=== PATIENT | male | born 1945 | race Caucasian/White ===

== ENCOUNTER 2017-03-27 08:49 | Day surgery (SDC) | payer MEDICARE ==
[2017-03-27] VITALS (10 sets, daily range): BP systolic 106–149; BP diastolic 57–83; PULSE 57–65; RESP 14–25; O2SAT 93–95
[~2017-03-27] VITALS: Ht 185.4 cm; Wt 115.2 kg
[~2017-03-27 08:49] MED LIST: CARB1CAP3 PO; CIPR-231 PO; LOSA50TA37 PO; NITR100C PO; ROPI0.252 PO; TAMS0.4C98 PO
[2017-03-27] MEDS ORDERED: Furosemide 10 mg/mL 4 mL Inj ONE (08:50)
[2017-03-27] MEDS ORDERED: Dexamethasone 4 mg/mL Inj ONE (08:50)
[2017-03-27] MEDS ORDERED: Ondansetron 2 mg/mL 2 mL Inj ONE (08:50)
[2017-03-27] MEDS ORDERED: Propofol 10,000 mCg/mL 20 mL Inj ONE (08:50)
[2017-03-27] MEDS ORDERED: Lactated Ringer's 1,000 ML IV ONE (09:19)
[2017-03-27] MEDS ORDERED: levoFLOXacin 500 mg/100 mL D5W Premix IV ONE (09:19)
[2017-03-27] MEDS ORDERED: Vancomycin 1,000mg/200 mL NS IV ONE (09:19)
[2017-03-27 09:51] LABS: APPEARANCE,URINE HAZY (CLEAR,HAZY); COLOR,URINE YELLOW (YELLOW); OCCULT BLOOD,URINE LARGE (NEGATIVE); UROBILINOGEN,URINE NORMAL (NORMAL)
[2017-03-27 09:55] LABS: BASOPHILS % (AUTO) 0.2 % (0-3); EOSINOPHILS % (AUTO) 3.8 % (0-5); MONOCYTES % (AUTO) 8.5 % (4-12); Mean Corpuscular Hemoglobin 29.8 pg (27.0-35.0); Mean Corpuscular Volume 88.7 fL (81-100); NEUTROPHILS % (AUTO) 67.2 % (40-74); Platelet Count 258 bil/L (150-400)
--- NOTE | 2017-03-27 10:27 | DRSVH ---
PROCEDURE: X-RAY CHEST ONE VIEW, PORTABLE ([id number]) INDICATIONS: PREOP TECHNIQUE: One view of the chest was acquired. COMPARISON: [facility], CR, XR CHEST 2VW, 11/29/2015, 16:18. [facility], CR , XR CHEST 2VW, 12/08/2015, 13:29. FINDINGS: Surgical changes and devices: None. Lungs and pleura: Mild diffuse interstitial prominence. No pleural effusions or pneumothorax. Lungs are clear. Mediastinum: Mediastinal contours appear normal. Heart size is normal. Bones and chest wall: No suspicious bony lesions. Overlying soft tissues appear unremarkable. IMPRESSION: Mild increase in interstitial prominence. No acute cardiopulmonary disease. Dictated by: Laury Romo M.D. on 03/27/2017 at 10:24 Approved by: Laury Romo M.D. on 03/27/2017 at 10:25
[2017-03-27] MEDS ORDERED: Phenylephrine 10,000 mCg/mL Inj IVPUSH PRN (11:05)
[2017-03-27] MEDS ORDERED: Lactated Ringer's 500 ML IV PRN (11:05)
[2017-03-27] MEDS ORDERED: MetoCLOpramide 5 mg/mL 2 mL Inj IVPUSH PRN (11:05)
[2017-03-27] MEDS ORDERED: HYDROmorphone 1 mg/mL Inj IVPUSH PRN (11:05)
[2017-03-27] MEDS ORDERED: EPHEDrine Sulfate 50 mg/mL Inj IVPUSH PRN (11:05)
[2017-03-27] MEDS ORDERED: Dexamethasone 4 mg/mL Inj IVPUSH PRN (11:05)
[2017-03-27] MEDS ORDERED: Ondansetron 2 mg/mL 2 mL Inj IVPUSH PRN (11:05)
[2017-03-27] MEDS ORDERED: fentaNYL-PF 50 mCg/mL 2 mL Inj IVPUSH PRN (11:05)
--- NOTE | 2017-03-27 11:05 | PCM.HPANE ---
Patient Data Surgeon Admitting Provider: Attending Provider:Betito Arce MD Primary Care Physician:Marco Pascal MD Other Provider:Sasha Moyaingham Anesthesia Reason for Visit Bladder Stone Ht/WT & BMI Height (Feet): 6 Height (Inches): 1 Weight (Kilograms): 115.2 Body Mass Index 33.00 Allergies Coded Allergies: No Known Allergies (Verified , 03/26/17) Past Anesthesia History Anesthesia History: Denies:: Abnormal Airway, Anesthesia Reactions, Difficult Intubation, Fam Anesthesia Reaction, Fam Malignant Hypertherm, Malignant Hyperthermia Diabetes History Hx Diabetes?: No MRSA MRSA: No Medications Hypertension Medication: Yes (LOSARTAN) Home Meds Incl Beta Jennifer: No Reported Medications Carbidopa/Levodopa (Rytary ER 36.25 mg-145 mg Cap)36.25 Mg-145 Mg Capsule.er3 Each PO TID 03/26/17 Ciprofloxacin (Cipro)500 Mg [id number] Mg PO BID Ref 0 X 7 DAYS 03/26/17 Losartan Potassium 50 Mg [id number] Mg PO HS 12/04/15 Tamsulosin (Flomax)0.4 Mg Capsule0.4 Mg PO DAILY Ref 0 12/04/15 Discontinued Reported Medications Ropinirole 0.25 Mg Tablet0.25 Mg PO HS Ref 0 03/26/17 Nitrofurantoin Macrocrystal 100 Mg [id number] Mg PO HS Ref 0 03/26/17 Carbidopa/Levodopa 25-100 mg 1 Each Tablet2 Tablet PO QID 12/04/15 History History of ENT Problems?: No HEENT History: Denies:: Abnormal Airway Cataracts Difficult Intubation Dysphagia Glaucoma Hearing Problem Sinus Problem TMJ Denture Type: None Teeth Condition: Within Normal Limits Hx of Heart Problems?: Yes Cardiovascular History: Positive for:: Hypertension Denies:: AICD Atrial Fibrillation Chest Pain Heart Murmur Pacemaker Valvular Heart Disease Hx of Respiratory Problem?: Yes Respiratory History: Positive for:: Use of C-PAP Machine (SRINIVASA+ W/ ??CPAP SLEEP STUDY 11/2016) Denies:: Asthma COPD Chest Surgery (HX OF PULMONARY NODULE) Cough Hemoptysis Pneumonia Tuberculosis Hx Neurologic Problems?: Yes Neurological History: Positive for:: Parkinson's Disease Denies:: CVA Dementia Hx of GI Problems?: Yes Other GI Pertinent History: S/P UMBILICAL HERNIA RPR Hx of Problems?: Yes Genitourinary History: Positive for:: Urinary Tract Infection Other Pertinent History: BLADDER STONE=CURRENT PROBLEM HX PRIOR STONES IN BLADDER,LIPOMA PELVIC FLOOR S/P LITHOLAPAXY X2 Male Hx: Positive for:: Prostate Problems (BPH S/P MULT PROSTATE BX'S,TURP ) Denies:: Scrotal Mass Testicular Surgery Skin History: Denies:: History Skin Disorders? Pressure Ulcers Hx Musculoskeletal Problems?: Yes Musculoskeletal History: Positive for:: Musculoskeletal Trauma (S/P RT KNEE MENISECTOMY) Denies:: Joint Replacement Hx of Psycho/Social Problems?: No Psycho Social History: Denies:: Anxiety Hx Depression Hx Surgeries?: Yes (RT KNEE MENISECTOMY,TURP,UMBILICAL HERNIA RPR,MULT PROSTATE BX'S,LITHOLAPAX) Hx Any Other Health Problems?: Yes Other History: Positive for:: Hospitalization (BPH, ENDOSCOPY) Denies:: Cancer Endocrine Disease Thyroid Disease History Blood Transfusions: Denies:: Blood Transfusions Hx Diabetes: No Hx Alcohol Use: YesAlcoholic Drinks Per Day: 1/DAYHx Substance Use: No Smoking Status: Never Smoker Have You Smoked inLast 12 mo: No Stop/Bang Treated for Sleep Apnea?: Yes Do You Have a CPAP Machine?: Yes S-Snoring: Do You Snore Loudly: Yes T-Tired: feel tired, fatigued: Yes O-Obsered: Observed not breath: No P-Blood Pressure: treated: Yes B- Body Mass Index > 35 kg/m2: No A- Age over 50: Yes N- Neck Large Circumference: Yes G- Gender Male: Yes SRINIVASA Total Score: 6 SRINIVASA Risk Assessment: High Risk, =/>3 Yes Risk Assessment Category Category 1A: Patient has history of documented sleep apnea, and HAS NOT received any narcotic, sedative or anesthesia administration during this stay. Category 1B: Patient has history of documented sleep apnea, and HAS received any narcotic , sedative or anesthesia administration during this stay Category 2: Patient has SUSPECTED Obstructive Sleep Apnea, and HAS received any narcotic , sedative or anesthesia administration during this stay. Category 3: Patient has SUSPECTED Obstructive Sleep Apnea and HAS NOT received narcotic, sedative or anesthesia administration during this stay. Category 4: Outpatient in Procedural Areas with known sleep apnea or who screen positive for High Risk via the STOP/BANG questionnaire. Exam Exam Vital Signs Vital Signs Date Time Temp Pulse Resp B/P Pulse Ox O2 Delivery O2 Flow Rate FiO2 03/27/17 09:51 36.1 58 18 129/78 95 Room Air General Appearance: Oriented X3 HEENT/AIRWAY: MP 2 Lungs: Normal Air Movement Heart: Regular Rate/Rhythm Meds/Labs/Diagnostics Admission Meds Current Medications Lactated Ringer's (Lr) 1,000 ml @ ud STK-MED ONCE IV Last administered on t 09:19; Start 03/27/17 at 09:19; Stop 03/27/17 at 09:20; Status DC Labs Test 03/27/17 09:28 03/27/17 09:45 Urine Color Yellow (YELLOW) Urine Appearance Hazy (CLEAR,HAZY) Urine pH 6.0 (5.0-8.0) Urine Specific [place] 1.020 (1.003-1.035) Urine Protein 30mg/dL (NEG,TRACE) Urine Glucose (UA) Negativemg/dL (NEGATIVE) Urine Ketones Negativemg/dL (NEGATIVE) Urine Occult Blood Large (NEGATIVE) Urine Nitrite Positive (NEGATIVE) Urine Bilirubin Negative (NEGATIVE) Urine Urobilinogen Normalmg/dL (NORMAL) Urine Leukocyte Esterase Moderate (NEGATIVE) Urine RBC 11-50/hpf (0-2) Urine WBC 11-50/hpf (0-5) Urine Epithelial Cells Occasional/hpf (NONE-MOD) Urine Crystals None seen (NONE SEEN) Urine Bacteria Few/hpf (NONE-FEW) Urine Hyaline Casts None/lpf (NONE) Urine Granular Casts None seen (NONE SEEN) Urine Waxy Casts None seen (NONE SEEN) Urine Red Blood Cell Casts None seen (NONE SEEN) Urine White Blood Cell Casts None seen (NONE SEEN) Urine Mucus None seen (None Seen) Urine Trichomonas None seen (NONE SEEN) Urine Yeast None (NONE SEEN) Urinalysis Comment None Urine Culture Reflexed Indicated White Blood Count 8.4th/mm3 (3.8-10.1) Red Blood Count 4.96mil/mm3 (4.40-5.80) Hemoglobin 14.8g/dL (13.8-17.2) Hematocrit 44.0% (41.0-50.0) Mean Corpuscular Volume 88.7fL (81-100) Mean Corpuscular Hemoglobin 29.8pg (27.0-35.0) Mean Corpuscular Hemoglobin Concent 33.6% (32.0-37.0) Red Cell Distribution Width 12.9% (12.3-15.4) Platelet Count 258bil/L (150-400) Neutrophils (%) (Auto) 67.2% (40-74) Lymphocytes (%) (Auto) 20.2% (14-46) Monocytes (%) (Auto) 8.5% (4-12) Eosinophils (%) (Auto) 3.8% (0-5) Basophils (%) (Auto) 0.2% (0-3) Sodium Level 136mEq/L (134-144) Potassium Level 4.2mEq/L (3.5-5.2) Chloride Level 102mEq/L (97-108) Carbon Dioxide Level 20mmol/L (18-29) Blood Urea Nitrogen 17mg/dL (8-27) Creatinine 0.67mg/dL (0.76-1.27) Estimat Glomerular Filtration Rate 124mL/min (>59) Glucose Level 113mg/dL (60-99) Calcium Level 9.2mg/dL (8.5-10.1) Plan Impression Patient chart reviewed, patient interviewed and anesthestic plan with risks, benefits, and alternatives discussed, and informed consent obtained. ASA Physical Status: ASA2 Mod Systemic Disease Anesthetic Plan: GA Bene/Risks/Altern/Consents: Yes HP Complete Prior to Induction: Yes Leo Hancock MD Mar 27, 2017 11:05
[2017-03-27] MEDS ORDERED: Belladonna Alk-Opium 60 mg Rectal Suppository RECTAL ONE (11:51)
--- NOTE | 2017-03-27 14:07 | PCM.SURGPO ---
Immediate Operative Note Date of Surgery: Mar 27, 2017 Pre Operative Diagnosis Bladder calculi Post Operative Diagnosis Bladder calculi Procedure Cystoscopy, cystolitholapaxy with Holmium laser Surgeon and Vice President Of Finance Surgeon: Betito Arce MD Assistants: None Findings Cystoscopy revealed s/p TURP defect with moderate regrowth of prostatic tissue in prostatic fossa, mild-moderately enlarged intravesical median prostatic lobe , prostatic varices (with bleeding seen after passage of cystoscope into bladder ), 10-15 bladder calculi (largest calculus approx. 2.5-3cm, 2nd and 3rd largest calculi approx. 1-1.5cm, other calculi <1cm), moderately trabeculated bladder, no bladder tumors or lesions, and B/L ureteral orifices in normal position. Cystolitholapaxy with Holmium laser performed. Fulguration of bleeding at bladder neck and in prostatic urethra performed using bipolar loop electrocautery. Of note, extra-long continuous flow resectoscope used during case. Complications There were no periprocedural complications identified. Surgical Specimen Removed: Yes Specimen sent to Pathology: No Surgical Specimen description: Bladder calculi fragments sent to lab for stone analysis Anesthetic Administered: GA Grafts, Implants: Other (22F Coude Moeller catheter to straight drainage) Output, Estimated Blood Loss: 20 Blood Admin during surgery: No Additional information Patient to be discharged home with Moeller and to return in 5-6 days for post-op visit and trial of void (early-mid AM appt.). Betito Arce MD Mar 27, 2017 14:07
--- NOTE | 2017-03-27 14:13 | PCM.DISURG ---
Surgical Discharge Instruction Date of Service Mar 27, 2017 Dates of Hospitalization Date of Hospital Admission Mar 27, 2017 Providers Admitting Physician: Betito Arce MD Primary Care Physician: Marco Pascal MD Attending Physician: Betito Arce MD Discharge Diagnosis Discharge Diagnosis Bladder calculi Post Operative diagnosis Bladder calculi Diet Discharge Diet: No restrictions, Other (Drink at least 10-12 8oz. glasses (3 liters) of fluids per day as long as there is blood in the urine) Activity Discharge Activity-General: No driving while taking narcotic, Other (No strenuous exercise/activity, moderate or heavy lifting (> 10 lbs.), or straining (including for bowel movements) for 2 weeks) Dressing and Incisional Care Hygiene: May shower Follow Up Plan Follow-up Provider (F9): Betito Arce MD Follow-up appointment: Days (5-6 days for post-op visit and trial of void ( early-mid AM appt.)) Call your provider for: Fever, Chills, Vomiting, Other (Non-draining Moeller catheter, pain uncontrolled by pain medications) Betito Arce MD Mar 27, 2017 14:13
[2017-03-27] MEDS: Lactated Ringer's 1,000 ML IV SCH ×2 (14:15→14:38)
[2017-03-27] MEDS ORDERED: HYDROcodone-APAP 5-325 mg Tablet PO PRN (14:20)
--- NOTE | 2017-03-27 14:59 | PCM.ANEP1 ---
Post Anesthesia PACU Phase 1 Assessment Vital Signs Vital Signs Date Time Temp Pulse Resp B/P Pulse Ox O2 Delivery O2 Flow Rate FiO2 03/27/17 14:40 36.2 65 16 135/76 93 Room Air 03/27/17 14:35 64 19 140/83 95 Room Air 03/27/17 14:30 65 14 127/76 93 Room Air 03/27/17 14:15 58 18 124/64 94 Simple Mask 7 03/27/17 14:10 36.1 57 19 113/63 94 Simple Mask 7 03/27/17 14:05 57 22 106/57 95 Simple Mask 7 03/27/17 14:00 57 25 107/59 94 Simple Mask 7 03/27/17 13:55 36.3 115/61 03/27/17 09:51 36.1 58 18 129/78 95 Room Air Anesthetic Administered: GA Level of Alertness: Awake, talking Pain: No Nausea or Vomiting: No CV Function & Hydration Stable: Yes Airway Device: Oralpharangeal Airway Lungs: Normal Air Movement PACU Phase 2 Assessment Patient Instructions Provided: N/A Leo Hancock MD Mar 27, 2017 14:59
--- NOTE | 2017-03-29 06:34 | OP ---
[address] [address] OPERATIVE REPORT PATIENT: LILIA SULLIVAN : 1945 MR#: [id number] ADMIT: 03/27/2017 JOB ID: [id number] DATE OF SURGERY: 03/27/2017 PREOPERATIVE DIAGNOSIS(ES): Bladder calculi. POSTOPERATIVE DIAGNOSIS(ES): Bladder calculi. PROCEDURE: 1. Cystoscopy. 2. Cystolitholapaxy with holmium laser. SURGEON: Betito Arce MD GENERATOR OPERATOR STRAIGHT BEVEL GEAR: None. ANESTHESIA: General. ESTIMATED BLOOD LOSS: 20 mL. SPECIMENS: Bladder calculi fragments sent to the lab for stone analysis. DRAINS: A 22 coude Moeller catheter to straight drainage. COMPLICATIONS: None. CONDITION: Stable. FINDINGS: Cystoscopy revealed status post TURP defect with moderate regrowth of prostatic tissue in the prostatic fossa. [id number] enlarged intravesical median prostatic lobe. Prostatic varices (with bleeding seen after passage of cystoscope into the bladder), 10-15 bladder calculi (largest calculus approximately 2.5-3 cm; second and third largest calculi approximately 1-1.5 cm. Other calculi less than 1 cm). Moderately trabeculated bladder. No bladder tumors or lesions. Bilateral ureteral orifices in normal position. Cystolitholapaxy with holmium laser was performed. Fulguration of bleeding at the bladder neck and in prostatic urethra was performed using bipolar loop electrocautery. Of note, extra long continuous-flow resectoscope was used during the case. INDICATIONS: The patient is a 72-year-old male, found to have bladder calculi on office cystoscopy. The patient now presents for cystoscopy, cystolitholapaxy with holmium laser. DESCRIPTION OF PROCEDURE: The patient was brought to the operating room and placed supine on the operating room table. The patient was given Levaquin IV antibiotics. Sequential compression device boots were placed. General anesthesia was administered. The patient was brought down into dorsal position. Patient was prepped and draped in standard surgical fashion. A 27-Colombian continuous-flow resectoscope was placed into the distal urethra without difficulty. Cystoscopy revealed normal distal urethra, status post TURB defect with moderate regrowth of prostatic tissue in the prostatic fossa. Ijyq-rv-pvgpqcodeb enlarged intravesical median prostatic lobe. Prostatic varices (with bleeding seen after passage of cystoscope into the bladder); 10-15 bladder calculi (largest calculus approximately 2.5-3 cm; the second and third largest calculi approximately 1-1.5 cm; other calculi less than 1 cm). Moderately trabeculated bladder, no bladder tumors or lesions, and bilateral ureteral orifices in normal position. Of note, difficulty was encountered in passing the continuous-flow resectoscope into the bladder secondary to a long prostatic urethra and long urethra. Thus, an extra long continuous-flow resectoscope was used during the case. The bladder calculi were fragmented into small fragments using a 990 micron holmium laser fiber. Thus, cystolitholapaxy with holmium laser was performed. Bladder calculi fragments were extracted from the bladder via irrigation with continuous-flow resectoscope, and also using an [employer]iya evacuator. Bladder calculi fragments were sent to the lab for stone analysis. The bladder was visualized. No significant, larger then 2-3 mm calculi fragments, were seen in the bladder. Of note, bleeding was seen at the bladder neck and in the prostatic urethra secondary to prostatic varices, and fulguration of bleeding at the bladder neck and in the prostatic urethra was performed using Thunderbeat bipolar loop electrocautery. Good hemostasis was achieved. At the end the case, no significant larger than 2-3 mm bladder calculi fragments were seen in the bladder. Bilateral ureteral orifices were seen to be intact and well-preserved at the end the case. No evidence of bladder injury was seen. Thus, cystolitholapaxy with holmium laser had been performed, and good hemostasis had been achieved using bipolar loop electrocautery to fulgurate the bleeding at the bladder neck and in the prostatic urethra. The continuous-flow resectoscope was removed from the patient. Bladder calculi fragments were sent to the lab for stone analysis. A 22-Colombian coude Moeller catheter was placed through the urethra and into the bladder without difficulty. Moeller catheter balloon was inflated with 10 mL of sterile water. Moeller catheter was placed to straight drainage. The skin was cleaned and dried. The patient was placed in the supine position. The patient was awakened from general anesthesia and transferred to the recovery room in stable condition. The patient tolerated the procedure well. Postoperative plan is for the patient to be discharged home with a Moeller catheter, and return to see me in the office in 5-6 days for a postop visit and trial of void (early to mid-morning appointment).
[2017-04-07 15:09] LABS: Stone Color Tan (.)
== END 2017-03-27 23:59 | disposition home or self-care (01) ==
LOC: SAS 08:49
PROVIDERS: ATTEND Urology
DX: N21.0 Calculus in bladder (principal); I86.8 Varicose veins of other specified sites; N32.89 Other specified disorders of bladder; Z87.440 Personal history of urinary (tract) infections; I10 Essential (primary) hypertension; G20 Parkinson's disease
CPT/HCPCS: 36415; 52317; 71010; 80048; 81000; 82360; 85025; 87086; 87088; 93005; J1100; J1940; J2405; J3370; J7120

== ENCOUNTER 2017-03-29 19:15 | Emergency (ER) | payer MEDICARE ==
[~2017-03-29] VITALS: Ht 185.4 cm; Wt 113.6 kg
[~2017-03-29 19:15] MED LIST changes: -NITR100C PO; -ROPI0.252 PO
[2017-03-29 19:20] VITALS: BP 141/77; PULSE 69; RESP 16; O2SAT 94
[2017-03-29 20:09] LABS: APPEARANCE,URINE HAZY (CLEAR,HAZY); COLOR,URINE YELLOW (YELLOW); OCCULT BLOOD,URINE LARGE (NEGATIVE); PH,URINE 6.5 (5.0-8.0)
--- NOTE | 2017-03-29 20:09 | ED.REPORT ---
HPI- Male Date of Service Mar 29, 2017 ED Provider: Bao Patiño MD The patient is a 72 year old male w/ a hx of kidney stones, Parkinsons, and pulmonary nodule who presents to the ED due to a clogged catheter that was inserted 3 days ago for kidney stones. The pt reports that he feels pressure to urinate, but the urine comes out in the catheter tube and outside of the tube He and his attempted to irrigated it at home. Pt has a 20 Maced[place] catheter. He is currently on ciprofloxacin. Nursing Notes Stated Complaint: CATH POSS CLOGGED Chief Complaint: General Complaint Nursing Notes Reviewed: Yes Allergies: Coded Allergies: No Known Allergies (Verified , 03/26/17) Scheduled Carbidopa/Levodopa (Rytary ER 36.25 mg-145 mg Cap) 36.25 Mg-145 Mg Capsule.er 3 EACH PO TID Ciprofloxacin (Cipro) 500 Mg Tablet 500 MG PO BID X 7 DAYS Losartan Potassium (Losartan Potassium) 50 Mg Tablet 50 MG PO HS Oxybutynin Chloride (Oxybutynin Chloride) 5 Mg Tablet 5 MG PO TID Tamsulosin (Flomax) 0.4 Mg Capsule 0.4 MG PO DAILY General Time Seen by MD: 19:28 Chief Complaint Other (clogged catheter) Hx Obtained From: Patient, Spouse Arrived By: Walk-in Onset Occurred: Just prior to arrival Symptom Duration: Since onset Severity: Current: No pain currently Recent Healthcare: Recent doctor visit Similar Sx Previous: Yes Past Medical History Past Medical History kidney stones parkinson's disease pulmonary nodule Past Surgical History Right knee menisectomy, litholapax Reports: Inguinal hernia repair Smoking History Never Smoker Social History Other Social History: Good social support, , Local resident Ambulatory Status Independent Review of Systems Review of Systems Note: clogged catheter Constitutional: Denies: Chills, Fever GI: Denies: Abdominal pain, Nausea, Vomiting Musculoskeletal: Denies: Back pain, Extremity pain Complete sys rev & neg: except as marked. Neurologic: Denies: Change LOC, Numbness Physical Exam Initial Vital Signs Vital Signs (First) Date Time Temp Pulse Resp B/P Pulse Ox O2 Delivery O2 Flow Rate FiO2 03/29/17 19:20 37.0 69 16 141/77 94 Room Air Initial VS: Reviewed Male Genitourinary: Inspection NL bladder is not palpably distended [address] no obvious leakage upon examination General/Constitutional: Awake, Alert, No acute distress, Cooperative, Not toxic appearing Skin: Atraumatic, Warm, Dry Head / Eyes: Atraumatic, Normocephalic, PERRL, EOMI Neck: Atraumatic, Supple Back: Atraumatic, Inspection NL Upper Extremity / MS: Atraumatic, Full range of motion, No deformity Wrist / Hand: Atraumatic, Inspection NL, No deformity Lower Extremity / Pelvis / MS: Atraumatic, Inspection NL, No deformity Neurologic: Oriented X3, Speech NL Interpretation & Diagnostics Lab Results Interpretation Test 03/29/17 19:40 Urine Color Yellow (YELLOW) Urine Appearance Hazy (CLEAR,HAZY) Urine pH 6.5 (5.0-8.0) Urine Specific [place] 1.005 (1.003-1.035) Urine Protein Tracemg/dL (NEG,TRACE) Urine Glucose (UA) Negativemg/dL (NEGATIVE) Urine Ketones Negativemg/dL (NEGATIVE) Urine Occult Blood Large (NEGATIVE) Urine Nitrite Negative (NEGATIVE) Urine Bilirubin Negative (NEGATIVE) Urine Urobilinogen Normalmg/dL (NORMAL) Urine Leukocyte Esterase Moderate (NEGATIVE) Urine RBC 3-10/hpf (0-2) Urine WBC 6-10/hpf (0-5) Urine Epithelial Cells Few/hpf (NONE-MOD) Urine Crystals None seen (NONE SEEN) Urine Bacteria Few/hpf (NONE-FEW) Urine Hyaline Casts None/lpf (NONE) Urine Granular Casts None seen (NONE SEEN) Urine Waxy Casts None seen (NONE SEEN) Urine Red Blood Cell Casts None seen (NONE SEEN) Urine White Blood Cell Casts None seen (NONE SEEN) Urine Mucus None seen (None Seen) Urine Trichomonas None seen (NONE SEEN) Urine Yeast None (NONE SEEN) Urinalysis Comment None Urine Culture Reflexed Indicated Re-Eval/Medical Decision Consultation : Referral / Consult Name: Nicole Piña MD Consulted With: Urology Call Returned at: 21:29 Note: Case discussed. Counseled Regarding: Diagnosis, Lab results, Need for follow-up, When/why to return to ED Discharge & Departure Impression: Primary Impression: Moeller catheter problem Encounter type: initial encounter Qualified Code: T83.9XXA - Unspecified complication of genitourinary prosthetic device, implant and graft, initial encounter Additional Impressions: Bladder spasm Urinary tract infection Urinary tract infection type: catheter-associated UTI Indwelling urinary catheter type: indwelling urethral catheter Encounter type: initial encounter Qualified Code: T83.511A - Infection and inflammatory reaction due to indwelling urethral catheter, initial encounter Disposition: Home Discharge Condition All VS Reviewed: Yes Condition: Stable Patient Instructions: Catheter-associated Urinary Tract Infection (ED) Additional Instructions: Thank you for entrusting us with your care today. I spoke with the urologist and she advised to take Oxybutynin to decrease bladder spasm which will help with leakage. Keep irrigating the catheter as needed. It is possible you have a urinary tract infection. We are changing antibiotic coverage from Cipro (stop this) to cephalexen. return to ED for fevers, shaking chills, vomiting or if catheter is not draining and irrigation does not resolve this. Call the on-call urologist if you have concerns or questions relating to this over the weekend. Follow up with Dr Arce next week. Referrals: Betito Arce MD Attestation Portion of this note were transcribed by Italia Fowler. I, Dr. Patiño, personally performed the history, physical exam, and medical decision-making: I reviewed and confirmed the accuracy for the information in the transcribed note. Signed by: wendy Welch, 03/29/17 [id number] copies to: Marco Pascal MD, Donald L MD Mar 29, 2017 20:09 Italia Fowler Mar 29, 2017 20:26
[2017-03-29 20:10] LABS: UROBILINOGEN,URINE NORMAL (NORMAL)
[2017-03-29] MEDS ORDERED: OXYB5TAB10 PO (22:46)
[2017-03-29 22:55] VITALS: BP 133/80; PULSE 64; RESP 17; O2SAT 95
[2017-03-30] MEDS ORDERED: _Cephalexin 500 mg Capsule PO SCH (08:30)
== END 2017-03-29 22:56 | disposition home or self-care (01) ==
LOC: SED 19:15
DX: T83.091A Other mechanical complication of indwelling urethral catheter, initial encounter (principal); T83.511A Infection and inflammatory reaction due to indwelling urethral catheter, initial encounter; Y84.6 Urinary catheterization as the cause of abnormal reaction of the patient, or of later complication, without mention of misadventure at the time of the procedure; Y93.89 Activity, other specified; Y92.89 Other specified places as the place of occurrence of the external cause; Y99.8 Other external cause status; N32.89 Other specified disorders of bladder; G20 Parkinson's disease; Z87.442 Personal history of urinary calculi